=== PATIENT | male | born 1965 | race Caucasian/White ===

== ENCOUNTER 2016-07-31 18:33 | Emergency (ER) | payer OTHER ==
[2016-07-31] MEDS ORDERED: oxyCOD/ACETAMIN 5 MG/325 MG TABLET PO STA (18:44)
[2016-07-31] MEDS ORDERED: oxyCOD/ACETAMIN 5 MG/325 MG TABLET PO ONE (18:45)
== END 2016-07-31 19:21 | disposition home or self-care (01) ==
DX: M23.91 Unspecified internal derangement of right knee (principal); F17.200 Nicotine dependence, unspecified, uncomplicated
CPT/HCPCS: 73564; 99283; A9270

== ENCOUNTER 2016-09-29 06:52 | Emergency (ER) | payer MEDICAID, OTHER ==
--- NOTE | 2016-09-29 07:29 | XRAY Preliminary Report ---
Exam: XR Calcaneus RT IMPRESSION: Negative right calcaneus and foot radiography. [facility] SITE ID: [id number]
--- NOTE | 2016-09-29 07:29 | XRAY Preliminary Report ---
Exam: XR Foot 3 View RT IMPRESSION: Negative right calcaneus and foot radiography. [facility] SITE ID: [id number]
--- NOTE | 2016-09-29 07:31 | XRAY Report ---
EXAM: RIGHT CALCANEUS AND FOOT RADIOGRAPHY EXAM DATE: 09/29/2016 07:12 AM. CLINICAL HISTORY: Right heel pain after landing on right foot COMPARISON: None. TECHNIQUE: 3 views of the foot and 2 views of the calcaneus. FINDINGS: Bones: Normal. No fractures or bone lesions. Joints: Normal. No subluxations. Soft Tissues: Normal. No soft tissue swelling. IMPRESSION: Negative right calcaneus and foot radiography. [facility] Referring Provider Line: [phone] SITE ID: [id number]
--- NOTE | 2016-09-29 07:31 | XRAY Report ---
EXAM: RIGHT CALCANEUS AND FOOT RADIOGRAPHY EXAM DATE: 09/29/2016 07:12 AM. CLINICAL HISTORY: Right heel pain after landing on right foot COMPARISON: None. TECHNIQUE: 3 views of the foot and 2 views of the calcaneus. FINDINGS: Bones: Normal. No fractures or bone lesions. Joints: Normal. No subluxations. Soft Tissues: Normal. No soft tissue swelling. IMPRESSION: Negative right calcaneus and foot radiography. [facility] Referring Provider Line: [phone] SITE ID: [id number]
--- NOTE | 2016-09-29 08:27 | ED Physician Documentation ---
PD HPI LOWER EXT INJURY - Stated complaint Stated Complaint: R ANKLE INJ - Chief complaint Chief Complaint: Ext Problem - History obtained from History obtained from: Patient - History of Present Illness PD HPI LOW EXT INJURY LOCATION: Right, Foot Type of injury: Fall, Puncture wound Timing - onset: Last night Timing - duration: Hours Timing - details: Abrupt onset, Still present Improved by: Rest, Ice, Immobilization Worsened by: Moving, Palpating Associated symptoms: Swelling Similar symptoms before: Has not had sx before Recently seen: Not recently seen - Additional information Additional information: 51 y/o male was doing a back flip into a [place] pool and landed on a rock with his right foot. He has swelling and pain and cannot bear weight. He feels like his heal is broken. Review of Systems Constitutional: denies: Fever Respiratory: denies: Dyspnea, Cough GI: denies: Vomiting Musculoskeletal: reports: Extremity pain, Extremity swelling, Pain with weight bearing. denies: Neck pain, Back pain Neurologic: denies: Generalized weakness, Focal weakness, Numbness PD PAST MEDICAL HISTORY - Past Medical History Past Medical History: No - Past Surgical History Past Surgical History: Yes - Present Medications Home Medications: Ambulatory Orders Medication Instructions Recorded Confirmed Oxycodone HCl/Acetaminophen 1 each PO Q6HR PRN #12 tablet 09/29/16 [Percocet 5-325 mg Tablet] - Allergies Allergies/Adverse Reactions: Allergies Allergy/AdvReac Type Severity Reaction Status Date / Time No Known Drug Allergies Allergy Verified 06/09/16 19:56 - Social History Does the pt smoke?: Yes Smoking Status: Current every day smoker Does the pt drink ETOH?: No Does the pt have substance abuse?: Yes Substance Use and Type: Marijuana - Immunizations Immunizations are current?: Yes - POLST Patient has POLST: Yes PD ED PE NORMAL - Vitals Vital signs reviewed: Yes (normal ) - General General: No acute distress, Well developed/nourished - HEENT HEENT: Atraumatic, PERRL - Respiratory Respiratory: No respiratory distress - Extremities Extremities: Other (There is swelling to the right calcaneous and tenderness both medial and laterally. The ankle is without swelling and the remainder of the foot is without findings disal n/v is intact. ) - Neuro Neuro: Alert and oriented X 3, No motor deficit, No sensory deficit, Normal speech - Psych Psych: Normal mood, Normal affect Results - Vitals Vitals: Vital Signs - 24 hr 09/29/16 06:59 Temperature 37.0 C Heart Rate 80 Respiratory 16 Rate Blood Pressure 114/73 O2 Saturation 99 Oxygen O2 Source Room air - Rads (name of study) foot R Radiology: Prelim report reviewed (Impression negative right calcaneus and foot radiography.), EMP read indepedently, See rad report PD MEDICAL DECISION MAKING - ED course Complexity details: reviewed results, re-evaluated patient, considered differential, d/w patient ED course: 51 y/o male with swelling and pain in the right foot has bruising to the right calcaneous and plantar fascia. He does not have a fracture and the films show good bone. I have shared the results of the x-ray with the patient and recommended non-weight bearing and on crutches and off work for 3 days. Departure - Departure Disposition: 01 Home, Self Care Clinical Impression: Contusion of right foot Qualifiers: Encounter type: initial encounter Qualified Code(s): S90.31XA - Contusion of right foot, initial encounter Condition: Stable Instructions: ED Contusion Foot Follow-Up: [facility] [Provider Group] Prescriptions: Oxycodone HCl/Acetaminophen [Percocet 5-325 mg Tablet] 1 each PO Q6HR PRN #12 tablet PRN Reason: Pain Forms: Activity restrictions
[2016-09-29 08:42] VITALS: BP 127/77
== END 2016-09-29 08:55 | disposition home or self-care (01) ==
LOC: ED 06:52
DX: S90.31XA Contusion of right foot, initial encounter (principal); W22.8XXA Striking against or struck by other objects, initial encounter; F17.200 Nicotine dependence, unspecified, uncomplicated
CPT/HCPCS: 99283

== ENCOUNTER 2016-10-03 20:19 | Emergency (ER) | payer MEDICAID, OTHER ==
--- NOTE | 2016-10-03 20:56 | XRAY Preliminary Report ---
Exam: XR Ankle 3 View RT IMPRESSION: Mild lateral ankle soft tissue swelling. No evidence for acute fracture. [facility] SITE ID: [id number]
--- NOTE | 2016-10-03 20:59 | ED Physician Documentation ---
PD HPI LOWER EXT INJURY - Stated complaint Stated Complaint: RT ANKLE PAIN - Chief complaint Chief Complaint: Ext Problem - History obtained from History obtained from: Patient - History of Present Illness PD HPI LOW EXT INJURY LOCATION: Right, Ankle Type of injury: Fall (firm step down and had pain in ankle.), Twist Timing - onset: How many days ago (5) Worsened by: Moving, Palpating, Other (standing on it, was not able to stand for work) Associated symptoms: Swelling. No: Weakness, Numbness Similar symptoms before: Has not had sx before Recently seen: Emergency Dept (seen 4 days ago after injury with normal xray. Was given faisal wrap and crutches and 3 days off work. He says he tried to work today but the pain was too much for standing/walking. Did not have ankle brace.) Review of Systems Skin: denies: Abrasion (s), Laceration (s) Musculoskeletal: reports: Joint pain, Joint swelling (right ankle). denies: Back pain Neurologic: denies: Focal weakness, Numbness PD PAST MEDICAL HISTORY - Past Medical History Musculoskeletal: None - Past Surgical History Past Surgical History: Yes - Present Medications Home Medications: Ambulatory Orders Medication Instructions Recorded Confirmed Ibuprofen 800 mg PO BID #15 tablet 10/03/16 Oxycodone HCl/Acetaminophen 1 each PO Q6H PRN #20 tablet 10/03/16 [Percocet 5-325 mg Tablet] - Allergies Allergies/Adverse Reactions: Allergies Allergy/AdvReac Type Severity Reaction Status Date / Time No Known Drug Allergies Allergy Verified 10/03/16 20:30 - Social History Does the pt smoke?: Yes Smoking Status: Current every day smoker Does the pt drink ETOH?: No Does the pt have substance abuse?: Yes - Immunizations Immunizations are current?: Yes - POLST Patient has POLST: Yes PD ED PE NORMAL - Vitals Vital signs reviewed: Yes - General General: Alert and oriented X 3, Well developed/nourished - Derm Derm: Normal color, Warm and dry - Extremities Extremities: Other (right ankle tneder laterally with mild swelling. No ecchymosis. Achilles and heel are not tender. ) Results - Vitals Vitals: Oxygen O2 Source Room air - Rads (name of study) ankle right Radiology: Prelim report reviewed (no fracture), EMP read contemporaneously ( again no fracture, similar to 3 days ago), Other (done by nursing triage) PD MEDICAL DECISION MAKING - ED course Complexity details: reviewed results, considered differential (had sprain and was still hurting to walk after few days with faisal wrap and crutches. Did not have splint. Will try splint, more time off it before resuming work. He says it is still hurting a lot, so gave some more pain meds, but presume would be short term. ), d/w patient Departure - Departure Disposition: 01 Home, Self Care Clinical Impression: Ankle sprain Qualifiers: Encounter type: subsequent encounter Involved ligament of ankle: other ligament Laterality: right Qualified Code(s): S93.491D - Sprain of other ligament of right ankle, subsequent encounter Condition: Stable Record reviewed to determine appropriate education?: Yes Instructions: ED Sprain Ankle W X Ray Follow-Up: Deshawn Bucio MD [Provider Admit Priv/Credential] - Prescriptions: Ibuprofen 800 mg PO BID #15 tablet Oxycodone HCl/Acetaminophen [Percocet 5-325 mg Tablet] 1 each PO Q6H PRN #20 tablet PRN Reason: Pain Comments: Continue crutches as needed, with progressing weight bearing as able. Off work for another 4-5 days. Ibuprofen twice daily. Add percocet if needed. Follow up with Orthopedics in about a week for recheck on healing. Forms: Activity restrictions Discharge Date/Time: 10/03/16 21:59
--- NOTE | 2016-10-03 20:59 | XRAY Report ---
EXAM: RIGHT ANKLE RADIOGRAPHY EXAM DATE: 10/03/2016 08:50 PM. CLINICAL HISTORY: Pain, swelling. Fall on Friday, jumped into a shallow pool and injured right ankle. Swelling and bruising. COMPARISON: None. TECHNIQUE: 3 views. FINDINGS: Bones: No evidence for acute fracture. Joints: Normal. No effusion. No subluxations. The ankle mortise is normally aligned. Soft Tissues: Mild lateral ankle soft tissue swelling. IMPRESSION: Mild lateral ankle soft tissue swelling. No evidence for acute fracture. [facility] Referring Provider Line: [phone] SITE ID: [id number]
[2016-10-03] MEDS ORDERED: IBUPROFEN 600 MG TABLET PO STA (21:30)
[2016-10-03] MEDS ORDERED: oxyCODONE/ACET 5/325 Prepack 4 PO STA (21:30)
[2016-10-03] MEDS ORDERED: IBUPROFEN 800 MG TABLET PO ONE (21:34)
[2016-10-03] MEDS ORDERED: oxyCODONE/ACET 5/325 Prepack 4 PO ONE (21:34)
[2016-10-03 21:59] VITALS: BP 143/70
== END 2016-10-03 21:59 | disposition home or self-care (01) ==
LOC: ED 20:19
DX: S93.401D Sprain of unspecified ligament of right ankle, subsequent encounter (principal); X50.1XXD Overexertion from prolonged static or awkward postures, subsequent encounter; F17.200 Nicotine dependence, unspecified, uncomplicated
CPT/HCPCS: 73610; 99283; A9270

== ENCOUNTER 2016-10-08 19:16 | Emergency (ER) | payer MEDICAID ==
[2016-10-08] MEDS ORDERED: SULFAMETH/TRIMETH DS 800/160 MG TABLET PO STA (20:08)
[2016-10-08] MEDS ORDERED: SULFAMETH/TRIMETH DS 800/160 MG TABLET PO ONE (20:12)
== END 2016-10-08 20:59 | disposition home or self-care (01) ==
DX: L03.115 Cellulitis of right lower limb (principal); S93.601A Unspecified sprain of right foot, initial encounter; W19.XXXA Unspecified fall, initial encounter; Y92.89 Other specified places as the place of occurrence of the external cause; F17.200 Nicotine dependence, unspecified, uncomplicated
CPT/HCPCS: 99283; A9270

== ENCOUNTER 2016-10-13 17:41 | Emergency (ER) | payer MEDICAID ==
[2016-10-13 17:51] VITALS: BP 137/75
--- NOTE | 2016-10-13 18:26 | ED Physician Documentation ---
PD HPI LOWER EXT INJURY - Stated complaint Stated Complaint: RT ANKLE INJURY - Chief complaint Chief Complaint: Ext Problem - History obtained from History obtained from: Patient, Family - History of Present Illness Type of injury: Other (Injured the right foot several weeks ago, x-rays were negative. Having some trouble arranging orthopedic follow-up and he needs another note for work and more pain medication.) Review of Systems Constitutional: denies: Fever, Chills GI: denies: Abdominal Pain, Nausea, Vomiting : denies: Dysuria, Frequency PD PAST MEDICAL HISTORY - Past Medical History Musculoskeletal: None - Past Surgical History Past Surgical History: Yes - Present Medications Home Medications: Ambulatory Orders Medication Instructions Recorded Confirmed Ibuprofen 800 mg PO BID #15 tablet 10/03/16 10/13/16 Meloxicam [Mobic] 7.5 mg PO BID PRN #20 tablet 10/08/16 10/13/16 Sulfamethox/Trimeth 800/160 1 each PO BID #14 tablet 10/08/16 10/13/16 [Bactrim Ds 800/160] Oxycodone HCl/Acetaminophen 1 - 2 tab PO Q4H PRN #10 tablet 10/13/16 [Percocet 5-325 mg Tablet] - Allergies Allergies/Adverse Reactions: Allergies Allergy/AdvReac Type Severity Reaction Status Date / Time No Known Drug Allergies Allergy Verified 10/08/16 19:23 - Social History Does the pt smoke?: Yes Smoking Status: Current every day smoker Does the pt drink ETOH?: No Does the pt have substance abuse?: Yes - Immunizations Immunizations are current?: Yes - POLST Patient has POLST: Yes PD ED PE NORMAL - Vitals Vital signs reviewed: Yes - General General: Alert and oriented X 3, No acute distress - Extremities Extremities: Other (No bony tenderness about the right foot or ankle, he is tender over the plantar fascia and insertion of the plantar fascia on the calcaneus.) - Neuro Neuro: Alert and oriented X 3, Normal speech - Psych Psych: Normal mood, Normal affect Results - Vitals Vitals: Vital Signs - 24 hr 10/13/16 17:48 Temperature 36.8 C Heart Rate 85 Respiratory 16 Rate Blood Pressure 137/75 H O2 Saturation 97 Oxygen O2 Source Room air Departure - Departure Disposition: 01 Home, Self Care Clinical Impression: Foot sprain Qualifiers: Encounter type: initial encounter Laterality: right Qualified Code(s): S93.601A - Unspecified sprain of right foot, initial encounter Contusion of right foot Qualifiers: Encounter type: initial encounter Qualified Code(s): S90.31XA - Contusion of right foot, initial encounter Condition: Good Record reviewed to determine appropriate education?: Yes Instructions: ED Sprain Foot Follow-Up: [facility] [Provider Group] Prescriptions: Oxycodone HCl/Acetaminophen [Percocet 5-325 mg Tablet] 1 - 2 tab PO Q4H PRN #10 tablet PRN Reason: Pain Comments: The policy of this emergency department is to not give more than 3 prescriptions for narcotics or other controlled substances in any 1 year. You have already surpassed this benchmark and we cannot prescribe more narcotics for you. I encourage you to follow up with your primary care physician or to establish care with a primary care physician for ongoing pain management. You are always welcome to seek emergency care here for this or new issues but there will likely be limitations in the prescription of narcotic pain medication. Your blood pressure was elevated today on check into the emergency department. This does not mean that you have hypertension, it is a common phenomenon to come to the emergency department and have elevated blood pressure. I recommend that she see her primary care physician within the week to have it rechecked when you are feeling better. Forms: Activity restrictions
== END 2016-10-13 18:37 | disposition home or self-care (01) ==
LOC: ED 17:41
DX: S93.601A Unspecified sprain of right foot, initial encounter (principal); S90.31XA Contusion of right foot, initial encounter; X58.XXXA Exposure to other specified factors, initial encounter; R03.0 Elevated blood-pressure reading, without diagnosis of hypertension; F17.200 Nicotine dependence, unspecified, uncomplicated
CPT/HCPCS: 99283

== ENCOUNTER 2018-01-05 20:48 | Emergency (ER) | payer MEDICAID ==
[2018-01-05] MEDS ORDERED: ACETAMINOPHEN 500 MG TABLET PO STA (21:09)
--- NOTE | 2018-01-05 21:26 | ED Physician Documentation ---
PD HPI LOWER EXT INJURY - Stated complaint Stated Complaint: GLF - Chief complaint Chief Complaint: Ext Problem - History obtained from History obtained from: Patient - History of Present Illness PD HPI LOW EXT INJURY LOCATION: Right, Hip Type of injury: Fall Where injury occurred: Street Timing - onset: Today Timing - details: Abrupt onset Worsened by: Moving, Palpating Similar symptoms before: Has not had sx before Recently seen: Not recently seen - Additional information Additional information: Patient is a 52 year old male with no significant past medical history who is presenting to the emergency department for right sided hip pain. patient states that he was walking on the street and he was chasing after his dog when he tripped, landing on his right side injuring his hip. patient denies any other injuries at this time. Review of Systems Ten Systems: 10 systems reviewed and negative Musculoskeletal: reports: Extremity pain, Joint pain PD PAST MEDICAL HISTORY - Past Medical History Musculoskeletal: None - Past Surgical History Past Surgical History: Yes - Present Medications Home Medications: Ambulatory Orders Medication Instructions Recorded Confirmed Ibuprofen 800 mg PO BID #15 tablet 10/03/16 10/13/16 Meloxicam [Mobic] 7.5 mg PO BID PRN #20 tablet 10/08/16 10/13/16 Sulfamethox/Trimeth 800/160 1 each PO BID #14 tablet 10/08/16 10/13/16 [Bactrim Ds 800/160] Oxycodone HCl/Acetaminophen 1 - 2 tab PO Q4H PRN #10 tablet 10/13/16 [Percocet 5-325 mg Tablet] - Allergies Allergies/Adverse Reactions: Allergies Allergy/AdvReac Type Severity Reaction Status Date / Time No Known Drug Allergies Allergy Verified 01/05/18 20:55 - Social History Does the pt smoke?: Yes Smoking Status: Current every day smoker Does the pt drink ETOH?: No Does the pt have substance abuse?: Yes - Immunizations Immunizations are current?: Yes - POLST Patient has POLST: Yes PD ED PE NORMAL - Vitals Vital signs reviewed: Yes - General General: Alert and oriented X 3 - HEENT HEENT: Atraumatic - Neck Neck: No bony TTP - Cardiac Cardiac: RRR - Respiratory Respiratory: No respiratory distress - Derm Derm: Normal color - Neuro Eye Opening: Spontaneous Motor: Obeys Commands Verbal: Oriented GCS Score: 15 PD ED PE EXPANDED - General General: Alert, In Pain - Extremities Extremities: Right hip (tenderness to palpation ), Right knee (normal exam), Pedal Pulses Present Results - Vitals Vitals: Vital Signs - 24 hr 01/05/18 20:52 Temperature 36.5 C Heart Rate 93 Respiratory 20 Rate Blood Pressure 163/121 H O2 Saturation 100 Oxygen O2 Source Room air - Rads (name of study) [facility] hip Radiology: Final report received, EMP read contemporaneously (femoral neck fracture) PD MEDICAL DECISION MAKING - ED course Complexity details: reviewed old records, reviewed results, re-evaluated patient, considered differential, d/w patient ED course: Patient was seen and examined at bedside. imaging was ordered. when patient returned from imaging results were reviewed and were consistent with a right femur fracture. IV access was gained and labs were drawn. patient was treated with 50mcg of fentanyl for pain. patient required surgery but there were no inpatient beds available. Case was ultimately discussed with Dr. Devi, orthopedist at [facility] who accepted the patient in transfer. Arrangements were made for transfer and patient was transferred in stable condition. - Sepsis Event Vital Signs: Vital Signs - 24 hr 01/05/18 20:52 Temperature 36.5 C Heart Rate 93 Respiratory 20 Rate Blood Pressure 163/121 H O2 Saturation 100 Oxygen O2 Source Room air Departure - Departure Disposition: 02 Transfer Acute Care Hosp Clinical Impression: Femoral neck fracture Condition: Good
--- NOTE | 2018-01-05 21:58 | XRAY Report ---
Reason: fell, right sided hip pain Procedure Date: 01/05/2018 Accession Number: [id number] / [id number] Procedure: XR - Hip w/Pelvis 2-3V RT CPT Code: FULL RESULT: EXAM: RIGHT HIP AND PELVIS RADIOGRAPHY EXAM DATE: 01/05/2018 09:32 PM. HISTORY: Fell. Right sided hip pain. COMPARISONS: None. TECHNIQUE: 1 view of the pelvis and 1 view of the hip. FINDINGS: Bones: Mildly displaced right femoral neck fracture. Joints: The bilateral hip, pubis symphysis, and sacroiliac joints are preserved. Degenerative changes in the lower lumbar spine. Soft Tissues: Unremarkable. IMPRESSION: Mildly displaced right femoral neck fracture. [facility]
[2018-01-05] MEDS ORDERED: fentaNYL 100 MCG/2 ML VIAL IVP STA (22:19)
[2018-01-05 22:22] LABS: BASOPHILS # (AUTO) 0.1 10^3/uL (0.0-0.1); BASOPHILS % (AUTO) 1.2 %; EOSINOPHILS # (AUTO) 0.1 10^3/uL (0.0-0.7); EOSINOPHILS % (AUTO) 2.2 %; HGB - HEMOGLOBIN 13.7 g/dL (14.0-18.0); LYMPHOCYTES # (AUTO) 1.7 10^3/uL (1.5-3.5); LYMPHOCYTES % (AUTO) 29.7 %; MEAN CORPUSCULAR HEMOGLOBIN 32.9 pg (27.0-31.0); MEAN CORPUSCULAR HGB CONC 34.9 g/dL (32.0-36.0); MEAN CORPUSCULAR VOLUME 94.2 fL (80.0-94.0); MEAN PLATELET VOLUME 8.4 fL (7.4-11.4); MONOCYTES # (AUTO) 0.8 10^3/uL (0.0-1.0); MONOCYTES % (AUTO) 13.9 %; PLT - PLATELET COUNT 233 10^3/uL (130-450); RED BLOOD COUNT 4.17 10^6/uL (4.70-6.10); RED CELL DISTRIBUTION WIDTH 12.7 % (12.0-15.0); WHITE BLOOD COUNT 5.6 x10^3/uL (4.8-10.8)
[2018-01-05 22:29] LABS: PT - PROTHROMBIN TIME 11.1 secs (9.9-12.6)
[2018-01-05 22:37] LABS: ALBUMIN 4.1 g/dL (3.2-5.5); ALBUMIN/GLOBULIN RATIO 1.1 (1.0-2.2); BILIRUBIN,TOTAL 1.1 mg/dL (0.2-1.0); CALCIUM 9.5 mg/dL (8.5-10.3); TOTAL PROTEIN 7.8 g/dL (6.7-8.2)
[2018-01-05] MEDS ORDERED: MORPHINE 10 MG/ML VIAL IVP STA (23:24)
[2018-01-06] MEDS ORDERED: MORPHINE 10 MG/ML VIAL IVP STA (02:22)
[2018-01-06 02:30] VITALS: BP 165/110
== END 2018-01-06 02:41 | disposition short-term general hospital (02) ==
LOC: ED 20:48
DX: S72.001A Fracture of unspecified part of neck of right femur, initial encounter for closed fracture (principal); W01.0XXA Fall on same level from slipping, tripping and stumbling without subsequent striking against object, initial encounter; Y93.K1 Activity, walking an animal; Y92.410 Unspecified street and highway as the place of occurrence of the external cause; F17.200 Nicotine dependence, unspecified, uncomplicated
CPT/HCPCS: 36415; 73502; 80053; 83690; 85025; 85610; 85730; 96374; 96375; 96376; 99283; 99284; A9270; 99285

== ENCOUNTER 2018-01-06 02:37 | Outpatient (CLI) | payer MEDICAID | END 2018-01-06 02:38 | disposition short-term general hospital (02) | LOC: EMS 02:37 | PROVIDERS: ATTEND Surgery | DX: S72.91XA Unspecified fracture of right femur, initial encounter for closed fracture (principal); W01.0XXA Fall on same level from slipping, tripping and stumbling without subsequent striking against object, initial encounter | CPT/HCPCS: A0425; A0428; A0999 ==

== ENCOUNTER 2018-05-11 22:10 | Emergency (ER) | payer MEDICAID ==
[2018-05-11 22:18] VITALS: BP 171/138
[2018-05-11] MEDS ORDERED: DOXYCYCLINE 100 MG TABLET PO STA (22:39)
--- NOTE | 2018-05-11 22:43 | ED Physician Documentation ---
PD HPI HEENT - Stated complaint Stated Complaint: FACE BUMP - Chief complaint Chief Complaint: Abd Pain - History obtained from History obtained from: Patient - Additional information Additional information: 53-year-old male presents the emergency department for evaluation of irritation to his right face which started yesterday. The patient tried to drain this area and was picking at it and stabbing it with a needle and now the area is more swollen and red. No reports of fevers. The patient has no pain with movement of the eyes. The patient has no swelling of the eyelid. No other area of pain or discomfort. Symptoms are described as mild. Review of Systems Constitutional: denies: Fever, Chills Eyes: denies: Loss of vision, Discharge, Irritation Ears: denies: Ear pain Nose: denies: Congestion Throat: denies: Sore throat Cardiac: denies: Chest pain / pressure Respiratory: denies: Cough Skin: reports: Other (Facial redness) Musculoskeletal: denies: Neck pain Neurologic: denies: Headache PD PAST MEDICAL HISTORY - Past Medical History Cardiovascular: None Respiratory: None Neuro: None Endocrine/Autoimmune: None GI: None : None HEENT: None Psych: None Musculoskeletal: None Derm: None - Past Surgical History Past Surgical History: Yes - Present Medications Home Medications: Ambulatory Orders Medication Instructions Recorded Confirmed Doxycycline Hyclate 100 mg PO BID #20 capsule 05/11/18 - Allergies Allergies/Adverse Reactions: Allergies Allergy/AdvReac Type Severity Reaction Status Date / Time No Known Drug Allergies Allergy Verified 05/11/18 22:17 - Social History Does the pt smoke?: Yes Smoking Status: Current every day smoker Does the pt drink ETOH?: No Does the pt have substance abuse?: Yes Substance Use and Type: Marijuana - Immunizations Immunizations are current?: Yes - POLST Patient has POLST: Yes PD ED PE NORMAL - General General: Alert and oriented X 3, No acute distress - HEENT HEENT: Moist mucous membranes, Pharynx benign, Other (Poor dental hygiene) - Derm Derm: Normal color - Extremities Extremities: No deformity - Neuro Neuro: Alert and oriented X 3, Normal speech - Psych Psych: Normal affect PD ED PE EXPANDED - HEENT HEENT Visual: 1 - tenderness (There is a small indurated area on the right cheek, there is no active drainage or extensive erythematous changes. The patient has poor dental hygiene but no intraoral lesion. There is no swelling of the eyelid or periorbital region and no ocular changes) Results - Vitals Vitals: Vital Signs - 24 hr 05/11/18 22:15 Temperature 37.0 C Heart Rate 102 H Respiratory 18 Rate Blood Pressure 171/138 H O2 Saturation 100 Oxygen O2 Source Room air Procedures - Abscess I&D (location) Face Preparation: Chlorhexadine, Lidocaine 2 % Incision: Needle aspiration (After numbing the area an 18-gauge needle was inserted into the area of maximum swelling. There was 3 different stab incisions with no drainage. Since there is no drainage the procedure was aborted) Other: Pt tolerated well, Antibiotic prescribed PD MEDICAL DECISION MAKING - ED course ED course: The patient appears to have an indurated area which could be an early abscess or could just be swollen from the fact that he was picking at it and attempted to do a self incision and drainage. I was unable to drain any fluid. The patient was given a dose of an antibiotic in the emergency department and prescription for the rest. I discussed warning signs for worsening and advised returning immediately for any worsening or any concerns. Departure - Departure Disposition: 01 Home, Self Care Clinical Impression: Facial cellulitis Condition: Good Instructions: ED Cellulitis Facial Prescriptions: Doxycycline Hyclate 100 mg PO BID #20 capsule Comments: Please follow-up with primary care in 3-5 days for recheck of your wound Please return to the emergency department for any worsening or any concerns. It is possible that this may develop into an abscess and require drainage so please return if your condition is worsening
== END 2018-05-11 22:55 | disposition home or self-care (01) ==
LOC: ED 22:10
DX: L03.211 Cellulitis of face (principal); F17.200 Nicotine dependence, unspecified, uncomplicated
CPT/HCPCS: 99283

== ENCOUNTER 2018-05-11 23:19 | Emergency (ER) | payer MEDICAID ==
[2018-05-11 23:33] VITALS: BP 181/123
[2018-05-11] MEDS ORDERED: NAPROXEN 250 MG TABLET PO STA (23:33)
--- NOTE | 2018-05-11 23:41 | ED Physician Documentation ---
ED Addendum - Addendum Addendum: 05/11/18 23:40 The patient check back in from an earlier visit just a few minutes after being discharged. The patient's complaint was pain and a pain medication was ordered. For an unknown reason the patient became belligerent and stormed out of the emergency department prior to me going and seeing him.
== END 2018-05-11 23:45 | disposition left against medical advice (07) ==
LOC: ED 23:19
DX: L03.211 Cellulitis of face (principal); F17.200 Nicotine dependence, unspecified, uncomplicated
CPT/HCPCS: 99281; 99283; A9270

== ENCOUNTER 2018-05-26 15:43 | Outpatient (CLI) | payer MEDICAID | END 2018-05-26 15:44 | disposition critical access hospital (66) | LOC: EMS 15:43 | PROVIDERS: ATTEND Surgery | DX: M25.551 Pain in right hip (principal); W01.0XXA Fall on same level from slipping, tripping and stumbling without subsequent striking against object, initial encounter; Y92.511 Restaurant or cafe as the place of occurrence of the external cause | CPT/HCPCS: A0425; A0429; A0999 ==

== ENCOUNTER 2018-05-26 15:59 | Emergency (ER) | payer MEDICAID ==
[2018-05-26] MEDS ORDERED: oxyCODONE 5 MG TABLET PO STA (16:05)
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
--- NOTE | 2018-05-26 17:10 | XRAY Report ---
Reason: back/hip/elbow inj, fall Procedure Date: 05/26/2018 Accession Number: [id number] / [id number] Procedure: XR - Elbow 3 View RT CPT Code: FULL RESULT: EXAM: RIGHT ELBOW RADIOGRAPHY EXAM DATE: 05/26/2018 04:18 PM. CLINICAL HISTORY: Back/hip/elbow inj, fall. COMPARISON: None. TECHNIQUE: 3 views. FINDINGS: Bones: Normal. No fractures or bone lesions. Joints: Normal. No effusion. No subluxation. Soft Tissues: Normal. No soft tissue swelling. IMPRESSION: Normal elbow radiography. RADIA
--- NOTE | 2018-05-26 17:12 | XRAY Report ---
Reason: back/hip/elbow inj, fall Procedure Date: 05/26/2018 Accession Number: [id number] / [id number] Procedure: XR - Lumbar Spine 2 View CPT Code: FULL RESULT: EXAM: LUMBOSACRAL SPINE RADIOGRAPHY EXAM DATE: 05/26/2018 04:18 PM. CLINICAL HISTORY: Back/hip/elbow inj, fall. COMPARISONS: None. TECHNIQUE: 2 views. FINDINGS: Alignment: Levoscoliosis of the lumbar spine. Bones: Five lho-obs-uyxzyge lumbar vertebral bodies are present. No fractures or bone lesions. Disks: Normal. Disk heights are maintained. Facets: No degenerative changes. Sacroiliac Joints: Unremarkable. Soft Tissues: Normal. The visualized bowel gas pattern is normal. IMPRESSION: 1. Levoscoliosis of the lumbar spine. 2. No fracture identified. No listhesis. RADIA
--- NOTE | 2018-05-26 17:14 | XRAY Report ---
Reason: back/hip/elbow inj, fall Procedure Date: 05/26/2018 Accession Number: [id number] / [id number] Procedure: XR - Hip w/Pelvis 2-3V RT CPT Code: FULL RESULT: EXAM: RIGHT HIP RADIOGRAPHY EXAM DATE: 05/26/2018 04:18 PM. CLINICAL HISTORY: Back/hip/elbow inj, fall. COMPARISON: None. TECHNIQUE: 2 views. FINDINGS: Bones: 3 cannulated screws spanning the right femoral neck fracture. No evidence of hardware failure or loosening. Joints: Normal. No dislocation. The hip joint space is preserved. Soft Tissues: Normal. No soft tissue swelling. IMPRESSION: Three cannulated screws span the right femoral neck fracture. No evidence of hardware failure or loosening. RADIA
[2018-05-26 18:34] VITALS: BP 138/88
== END 2018-05-26 18:34 | disposition home or self-care (01) ==
LOC: EDUNIT# → ED 15:59
DX: S70.01XA Contusion of right hip, initial encounter (principal); S39.92XA Unspecified injury of lower back, initial encounter; S50.01XA Contusion of right elbow, initial encounter; W01.0XXA Fall on same level from slipping, tripping and stumbling without subsequent striking against object, initial encounter; Y92.511 Restaurant or cafe as the place of occurrence of the external cause; Z87.81 Personal history of (healed) traumatic fracture; R03.0 Elevated blood-pressure reading, without diagnosis of hypertension; F17.200 Nicotine dependence, unspecified, uncomplicated
CPT/HCPCS: 72100; 73080; 73502; 99282; 99283; A9270

== ENCOUNTER 2018-10-29 19:46 | Emergency (ER) | payer MEDICAID ==
[2018-10-29] MEDS ORDERED: BUPIVACAINE 0.5%-EPI 1:200000 PF 10 ML VIAL SUBQ STA (20:16)
--- NOTE | 2018-10-29 20:16 | ED Physician Documentation ---
PD HPI LOWER EXT INJURY - Stated complaint Stated Complaint: THORN IN LEFT KNEE - Chief complaint Chief Complaint: Ext Problem - History obtained from History obtained from: Patient - History of Present Illness PD HPI LOW EXT INJURY LOCATION: Left, Knee Type of injury: Puncture wound Where injury occurred: Other (doing yardwork for friend and got a puncture with thorn into left anterior knee, some other ones as well. He thought he got the thorn out but over the subsequent few days now he has had progressively increasing redness and swelling and pain in the anterior part of the knee.) Timing - onset: How many days ago (4) Timing - duration: Days (4) Timing - details: Gradual onset, Still present Improved by: No: Rest Worsened by: Moving, Palpating Associated symptoms: Swelling, Discolored (redness demarcated to anterior knee initially, now to medial aspect as well.). No: Weakness, Numbness Similar symptoms before: Has not had sx before Review of Systems Constitutional: reports: Myalgias. denies: Fever, Chills Nose: denies: Rhinorrhea / runny nose, Congestion Throat: denies: Sore throat Respiratory: denies: Cough GI: denies: Nausea, Vomiting Skin: reports: Lesions (left anterior knee.) Neurologic: denies: Generalized weakness, Focal weakness, Numbness PD PAST MEDICAL HISTORY - Past Medical History Past Medical History: No Cardiovascular: None Respiratory: None Neuro: None Endocrine/Autoimmune: None GI: None : None HEENT: None Psych: None Musculoskeletal: None Derm: None - Past Surgical History Past Surgical History: Yes Ortho: Other - Present Medications Home Medications: Ambulatory Orders Medication Instructions Recorded Confirmed Doxycycline Hyclate 100 mg PO BID #20 capsule 05/11/18 05/26/18 Oxycodone HCl/Acetaminophen 1 - 2 each PO Q6H PRN #10 tablet 05/26/18 [Percocet 5-325 mg Tablet] Doxycycline Hyclate 100 mg PO BID #20 capsule 10/29/18 Hydrocodone/Acetaminophen [[place] 1 each PO Q6H PRN #15 tablet 10/29/18 5-325 Tablet] Naproxen 500 mg PO BID #20 tablet 10/29/18 - Allergies Allergies/Adverse Reactions: Allergies Allergy/AdvReac Type Severity Reaction Status Date / Time No Known Drug Allergies Allergy Verified 10/29/18 19:53 - Social History Does the pt smoke?: Yes Smoking Status: Current every day smoker Does the pt drink ETOH?: Yes Does the pt have substance abuse?: Yes Substance Use and Type: Marijuana - Immunizations Immunizations are current?: Yes - POLST Patient has POLST: Yes PD ED PE NORMAL - Vitals Vital signs reviewed: Yes - General General: Alert and oriented X 3, Well developed/nourished, Other (appears in pain due to knee movement and palpation) - Derm Derm: Normal color, Warm and dry - Extremities Extremities: Other (The left knee shows a mildly ulcerative lesion in the anterior aspect of the patella or prepatellar area. There is no effusion noted. There is redness demarcated around the prepatellar area with good demarcation and deeper redness. There is no fluctuance nor drainage noted. There is mild redness along the medial aspect of the knee and the lower thigh. Inspection of the wound on the anterior part of the knee shows a small blackened area along with some scabbing that may represent retained foreign body.) Results - Vitals Vitals: Vital Signs - 24 hr 10/29/18 10/29/18 19:50 21:02 Temperature 36.5 C Heart Rate 61 105 H Respiratory 19 18 Rate Blood Pressure 144/110 H 147/108 H O2 Saturation 99 99 Oxygen O2 Source Room air Procedures - FB removal FB location: Subcutaneous FB removal preparation: Local anesthesia-specify (marcaine with epi) Removal method: Irrigated/flushed (The anterior aspect of the knee was anesthetized with Marcaine and then I used a scalpel and forceps to curette out the scab that was forming and also some early devitalized tissue around the block and small linear object looks like a residual thorn. The core skin was about 3 mm wide. This went through the skin to the subcutaneous tissue. No purulence was expressed. There was a firm area just at the 10 o'clock position of the prepatellar area and I did use a scalpel tip to gently explore that area and again no purulence was found.), Payal Hodges PD MEDICAL DECISION MAKING - ED course Complexity details: considered differential (Presume he has a localized area of inflammation and developing infection from a residual thorn. I was able to remove what look like it along with some scab and some early erosive did skin layer of tissue from apparent infection. There was demarcated redness quite deeply red demarcated on the anterior aspect of the knee that looked more consistent with prepatellar bursitis. However there was some faint redness extending to the medial aspect of the knee and the lower thigh consistent with some cellulitis as well. I did not find any purulence or pus pocket so no obvious abscess. He will be started on antibiotics and anti-inflammatories.), d/w patient Departure - Departure Disposition: 01 Home, Self Care Clinical Impression: Prepatellar bursitis of left knee, Wound infection Puncture wound of knee with foreign body Qualifiers: Encounter type: initial encounter Laterality: left Qualified Code(s): S81.042A - Puncture wound with foreign body, left knee, initial encounter Condition: Stable Record reviewed to determine appropriate education?: Yes Instructions: ED Bursitis, ED Wound Puncture General Prescriptions: Doxycycline Hyclate 100 mg PO BID #20 capsule Hydrocodone/Acetaminophen [[place] 5-325 Tablet] 1 each PO Q6H PRN #15 tablet PRN Reason: Pain Naproxen 500 mg PO BID #20 tablet Comments: I think the residual thorn is removed now. This should be enough of an opening for this to drain if it wants to. I think most of the redness around the knee is inflammatory but certainly there is some infection to it. Use anti-inflammatory naproxen twice daily for the next 7 to 10 days with food. Doxycycline antibiotic twice daily as well. Clean the wound couple times a day and apply ointment lightly to it and then keep it covered otherwise. Add Tyl enol or hydrocodone as needed for pain. Recheck if not improving well over the next couple of days and return if worsening. Discharge Date/Time: 10/29/18 21:05
[2018-10-29] MEDS ORDERED: HYDROcod/ACETAM 5/325 MG TABLET PO STA (20:47)
[2018-10-29] MEDS ORDERED: DOXYCYCLINE 100 MG TABLET PO STA (20:47)
[2018-10-29] MEDS ORDERED: NAPROXEN 250 MG TABLET PO STA (20:47)
[2018-10-29] MEDS ORDERED: HYDROcod/ACET 5/325 Prepack 4 PO STA (20:47)
[2018-10-29] MEDS ORDERED: MUPIROCIN 2% OINT 1 GM TOP STA (20:52)
[2018-10-29 21:03] VITALS: BP 147/108
== END 2018-10-29 21:05 | disposition home or self-care (01) ==
LOC: ED 19:46
DX: S81.042A Puncture wound with foreign body, left knee, initial encounter (principal); L08.9 Local infection of the skin and subcutaneous tissue, unspecified; M70.42 Prepatellar bursitis, left knee; Y93.H2 Activity, gardening and landscaping; F17.200 Nicotine dependence, unspecified, uncomplicated
CPT/HCPCS: 10120; 99283; A9270

== ENCOUNTER 2018-12-23 22:55 | Emergency (ER) | payer MEDICAID ==
[2018-12-23 23:00] VITALS: BP 152/107
[2018-12-23] MEDS ORDERED: oxyCODONE 5 MG TABLET PO STA (23:19)
[2018-12-23] MEDS ORDERED: diazePAM 5 MG TABLET PO STA (23:19)
[2018-12-23] MEDS ORDERED: KETOROLAC 30 MG/ML VIAL IM STA (23:19)
[2018-12-23] MEDS ORDERED: TRIAMCINOLONE 40 MG/ML VIAL IM STA (23:19)
[2018-12-24] MEDS ORDERED: oxyCODONE/ACET 5/325 Prepack 4 PO STA (00:07)
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
--- NOTE | 2018-12-24 00:08 | CT Report ---
Reason: upper thoracic pain/lower cervical pain; fall Procedure Date: 12/23/2018 Accession Number: [id number] / [id number] Procedure: CT - CERVICAL SPINE WO CPT Code: FULL RESULT: EXAM: CT CERVICAL SPINE WITHOUT CONTRAST DATE: 12/23/2018 11:41 PM. HISTORY: Upper thoracic pain/lower cervical pain; fall. COMPARISONS: None. TECHNIQUE: Thin-section axial images were acquired of the cervical spine without contrast. Post-processing: Coronal and sagittal reformats. Other: None. In accordance with CT protocol optimization, one or more of the following dose reduction techniques were utilized for this exam: automated exposure control, adjustment of mA and/or KV based on patient size, or use of iterative reconstructive technique. FINDINGS: Alignment: Grade 1 anterolisthesis of C3 on C4 measuring 3.5 mm. Kyphosis of the cervical spine centered at C4-C5. Bones: No fracture or bone lesion. Interspace Levels/Facets: Severe degenerative disk disease at C4-C5, C5-C6, and C6-C7. Multilevel facet joint arthropathy. Mild to moderate bilateral neural foraminal stenoses throughout the cervical spine. Spinal Canal: Moderate spinal canal stenosis at C5-C6. Mild spinal canal stenosis at C6-C7. Musculature: Normal. No fatty atrophy. Other: The paravertebral and prevertebral soft tissues are unremarkable. The lung apices are clear. IMPRESSION: 1. No acute fractures or dislocations. 2. Kyphosis of the cervical spine centered at C4-C5. 3. Grade 1 anterolisthesis of C3 on C4. 4. Multilevel degenerative disk disease of the cervical spine, most notably at C4-C7. RADIA
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
== END 2018-12-24 00:16 | disposition home or self-care (01) ==
LOC: ED 22:55
DX: M54.12 Radiculopathy, cervical region (principal); S46.912A Strain of unspecified muscle, fascia and tendon at shoulder and upper arm level, left arm, initial encounter; F17.200 Nicotine dependence, unspecified, uncomplicated
CPT/HCPCS: 72125; 72128; 96372; 99284; A9270